=== PATIENT | female | born 1990 | race Caucasian/White ===

== ENCOUNTER 2019-12-22 09:18 | Observation (INO) | payer OTHER, SELFPAY ==
--- NOTE | ~2019-12-22 | MR_ITS ---
EXAMINATION: MR cervical spine wo con DATE: 12/22/2019 18:14 INDICATION: Right hemiparesis. TECHNIQUE: Magnetic resonance imaging (MRI) of the cervical spine was performed without intravenous c ontrast. Sequences included sagittal T2-weighted FSE, sagittal T2-weighted FS FSE, sagittal T1-weight ed FSE, axial MERGE, and axial T2-weighted FSE. COMPARISON: None FINDINGS: There is mild kyphosis of cervical spine. Vertebral body heights and intervertebral disc he ights are normal. The spinal cord signal intensity is normal. The following disc levels are specifica lly discussed: C2-C3: The disc does not extend beyond the endplate margin. There is no uncovertebral joint osteoarth ritis. There is mild bilateral facet joint osteoarthritis. There is no neural foraminal stenosis. The re is no central canal stenosis. C3-C4: The disc does not extend beyond the endplate margin. There is no uncovertebral joint osteoarth ritis. There is no facet joint osteoarthritis. There is no neural foraminal stenosis. There is no hal tral canal stenosis. C4-C5: There is a central protrusion. There is no uncovertebral joint osteoarthritis. There is mild b ilateral facet joint osteoarthritis. There is no neural foraminal stenosis. There is mild central can al stenosis. C5-C6: There is a central extrusion. There is no uncovertebral joint osteoarthritis. There is no face t joint osteoarthritis. There is no neural foraminal stenosis. There is mild central canal stenosis. C6-C7: There is a central protrusion. There is mild left uncovertebral joint osteoarthritis. There is no facet joint osteoarthritis. There is no neural foraminal stenosis. There is mild central canal st enosis. C7-T1: The disc does not extend beyond the endplate margin. There is no uncovertebral joint osteoarth ritis. There is mild bilateral facet joint osteoarthritis. There is no neural foraminal stenosis. The re is no central canal stenosis. IMPRESSION: 1. Mild cervical spondylosis. Reviewed, dictated and finalized at location A. ETRICIAN
--- NOTE | ~2019-12-22 | CT_ITS ---
EXAMINATION: CTA brain carotid DATE: 12/22/2019 10:49 INDICATION: Right hemiparesis. TECHNIQUE: Computed tomographic angiography (CTA) of the head was performed without and with 100 mL O mnipaque-350 intravenous contrast. CTA of the neck was performed with intravenous contrast. Automated exposure control and iterative reconstruction technique were employed. The dose-length product was 1 548.16 mGy-cm. Maximum intensity projection and volume rendered 3D-reconstructions were created by migue lerner technologist on a separate workstation. COMPARISON: None. FINDINGS: HEAD CTA: There is no intracranial hemorrhage, acute infarction, or abnormal intracranial mass lesion . The ventricles are normal in size. There is mild mucosal thickening in the paranasal sinuses. The m astoid air cells are normal. The orbits are normal. The vertebral arteries are codominant. There is n o significant stenosis of basilar artery or the posterior cerebral arteries. There is no significant stenosis of the intracranial internal carotid arteries or anterior or middle cerebral arteries. Anter ior communicating artery is normal. The posterior communicating arteries are normal. There is no aneu rysm. NECK CTA: There is mild emphysema. There are no pathologically enlarged lymph nodes. There is no sign ificant stenosis of the vertebral arteries. There is no visible plaque in the proximal internal carot id arteries. There is 0% stenosis of the proximal right internal carotid artery relative to normal di stal artery lumen diameter (NASCET criteria). There is 0% stenosis of the proximal left internal paul tid artery relative to normal distal artery lumen diameter. There is mild cervical spondylosis. IMPRESSION: 1. Normal brain. No aneurysm or significant intracranial arterial stenosis. 2. Normal neck arteries. 3. I discussed these results with Marvin Armendariz on 12/22/19 at 10:55 AM. Reviewed, dictated and finalized at location A. RED VEHICLE OFFICER
--- NOTE | ~2019-12-22 | MR_ITS ---
EXAMINATION: MR brain/brain stem wo con DATE: 12/22/2019 18:14 INDICATION: Right hemiparesis. TECHNIQUE: Magnetic resonance imaging (MRI) of the brain and brainstem was performed without intraven ous contrast. Sequences included sagittal and axial T1-weighted FSE, axial diffusion-weighted FS EPI, axial T2*-weighted GRE, axial T2-weighted FLAIR Propeller, and axial T2-weighted Propeller. Apparent diffusion coefficient (ADC) maps were created. COMPARISON: Head CTA 12/22/2019 FINDINGS: There is no intracranial hemorrhage, acute infarction, or abnormal intracranial mass lesion . The ventricles are normal in size. There is mild mucosal thickening in the paranasal sinuses. The o rbits are normal. The mastoid air cells are normal. IMPRESSION: 1. Normal brain. Reviewed, dictated and finalized at location A. ESS TRACK VEHICLE SUPERVISOR IMPRESSION: 1. Normal brain.
[2019-12-22 09:24] VITALS: BP 128/78; PULSE 79; RESP 24; TEMP 36.5; O2SAT 100
[2019-12-22 09:55] LABS: Glucose Point of Care 78 (65-105)
--- NOTE | 2019-12-22 10:15 | ECG_ITS ---
Measurements Intervals [place] Rate: 75 P: 0 AL: 121 QRS: 51 QRSD: 85 T: 48 QT: 364 QTc: 407 Interpretive Statements SINUS RHYTHM NORMAL ECG Electronically Signed On 12-22-2019 10:58:16 AIRCRAFT MAINTENANCE MANAGER by Lobo Alvarez D.O.
--- NOTE | 2019-12-22 10:21 | ED.NEUROSD ---
HPI - Neuro Symptoms/Deficit General Chief Complaint: Neuro Symptoms/Deficit Stated Complaint: R arm and leg numbness Time Seen by Provider: 12/22/19 10:17 Source: patient and RN notes reviewed Mode of arrival: ambulatory Limitations: no limitations History of Present Illness HPI Narrative: A 29 y/o female presents to the ED with tingling and weakness to the rt side of her body beginning between 7:20 and 8:30 AM this morning. She states that she woke up at 7 AM this morning with a sore throat and some SOB. After roughly 30 minutes she developed tingling and weakness to the rt side of her body, arm then thigh then knee. After dropping at daycare she reports that she felt like she needed help walking because she felt like she would fall if she ddin't have any help, and her r side was weak. this was about 8:30 am. She denies anything alleviating her symptoms and notes that walking aggravates them. She also denies dizziness, lightheadedness, LERMA, N/V/D, ABD pain, and any other medical complaints at this time. She is tearful. Denies any previous episodes. Onset (ago): hour(s) (2) Time: 08:30 Location: right arm and right leg Quality: tingling and other (weakness) Relieving factors: none Exacerbating factors: other (walking) Context: sudden onset Associated symptoms: shortness of breath and other (sore throat) Related Data Home Medications Medication Instructions Recorded Confirmed No Home Medications 12/22/19 12/22/19 Allergies Allergy/AdvReac Type Severity Reaction Status Date / Time clarithromycin Allergy Mild Unknown Verified 12/22/19 09:43 Penicillins Allergy Mild Unknown Verified 12/22/19 09:43 sulfamethoxazole Allergy Mild Unknown Verified 12/22/19 09:43 trimethoprim Allergy Mild Unknown Verified 12/22/19 09:43 Review of Systems Review of Systems: All systems reviewed & are unremarkable except as noted in HPI and below Constitutional: Constitutional: Denies chills, Denies fatigue, Denies fever(s), Denies headache(s) and Denies night sweats Eyes: Eyes: Denies change in vision, Denies loss of vision and Denies other visual disturbances ENT: Denies headache(s), Denies hoarseness, Denies epistaxis, Denies nasal congestion and Reports sore throat Cardiovascular: Cardiovascular: Denies chest pain, Denies leg edema, Denies lightheadedness, Denies palpitations and Denies dyspnea Respiratory: Respiratory: Denies cough, Reports dyspnea and Denies wheezing Gastrointestinal: Gastrointestinal: Denies abdominal pain, Denies diarrhea, Denies nausea and Denies vomiting Genitourinary: Genitourinary: Denies hematuria, Denies urinary frequency and Denies dysuria Musculoskeletal: Musculoskeletal: Denies abnormal gait, Denies deformity, Denies joint swelling, Denies muscle weakness and Denies numbness Integumentary/Breasts: Skin/Breast: Denies rash, Denies unusual bruising and Denies wounds Neurologic: Denies abnormal gait, Denies dizziness, Denies headache(s), Denies loss of vision and Reports tingling (and weakness to rt side of body) Psychiatric: Psychiatric: Reports no additional psychiatric complaints Endocrine: Endocrine: Denies fatigue and Denies palpitations Hematologic/Lymphatic: Hematologic/Lymphatic: Denies easy bleeding and Denies easy bruising Allergic/Immunologic: Allergic/Immunologic: Denies wheezing PMFSH Past Medical History Medical History (Updated 12/22/19 @ 12:44 by Timothy Gomes MD) IUD (intrauterine device) in place Remove/insert IUD Surgical History Surgical History (Updated 12/22/19 @ 10:42 by Linus Jerry) History of tonsillectomy Social History Social History (Updated 12/22/19 @ 10:42 by Linus Jerry) Smoking packs per day: 0.5 Smoking cigarettes per day: 10.0 Smoking status: Current every day smoker Tobacco type: cigarettes Second hand tobacco smoke exposure: Yes Substance use: current Substance use type: marijuana Gender identity (if verbalized by the patient): Female C
[2019-12-22 10:44] LABS: Basophils Percent Auto 0.6 % (0.2-1.2); Eosinophils Absolute Auto 0.2 K/mm3 (0-0.3); Eosinophils Percent Auto 2.3 % (0-4.4); Hematocrit 39.2 % (37.0-47.0); Hemoglobin 12.6 g/dL (12.0-15.0); Immature Granulocyte Absolute 0.01 K/mm3 (0.00-0.031); Immature Granulocyte Percent A 0.2 % (0-0.5); Immature Platelet Fraction Pct 8.2 % (0.9-11.2); Lymphocytes Absolute Auto 1.13 K/mm3 (0.9-3.2); Lymphocytes Percent Auto 17.4 % (18.3-44.2); Mean Corpuscular HGB Conc 32.1 g/dl (32-36); Mean Corpuscular Hemoglobin 30.4 pg (26-34); Mean Corpuscular Volume 94.7 fl (80-100); Monocytes Absolute Auto 0.7 K/mm3 (0.1-0.6); Monocytes Percent Auto 11.2 % (2.6-8.5); Neutrophils Absolute Auto 4.5 K/mm3 (1.3-6.7); Neutrophils Percent Auto 68.3 % (45.5-73.1); Platelet Count Result 216 k/mm3 (150-375); Red Blood Count 4.14 M/mm3 (4.2-5.4); Red Cell Distribution Width 13.7 % (11.5-14.5); White Blood Count 6.5 K/mm3 (4.5-10.0)
[2019-12-22 10:50] LABS: INR 0.9; Prothrombin Time 12.3 Seconds (11.1-14.7)
[2019-12-22 10:51] LABS: Partial Thromboplastin Time 28.3 SECONDS (22.3-36.8)
[2019-12-22 10:52] LABS: Ethanol < 10 mg/dL (<10)
[2019-12-22 10:54] LABS: Alanine Aminotransferase 21 U/L (4-35); Alkaline Phosphatase 54 U/L (38-126); Aspartate Amino Transferase 25 U/L (14-36); Bilirubin,Total 0.2 mg/dL (0.2-1.3); Blood Urea Nitrogen 8 mg/dL (7-17); Calcium 8.9 mg/dL (8.4-10.2); Carbon Dioxide 26 mmol/L (22-30); Chloride 104 mmol/L (98-107); Estimated CRCL calculation 76 ml/min; Estimated Glomerular Filt Rate > 60; Glucose 84 mg/dL (65-105); Potassium 4.1 mmol/L (3.4-5.0); Sodium 139 mmol/L (137-145)
[2019-12-22 11:05] LABS: Troponin I < 0.012 ng/mL (0.000-0.034)
[2019-12-22 11:27] LABS: Add Urine Microscopic? YES; Appearance Urine Clear (Clear); Bacteria Urine Trace /hpf; Bilirubin Urine Negative (Negative); Blood Urine Negative (Negative); Color Urine Yellow (Yellow); Glucose Urine UA Negative (Negative); Ketones Urine Negative (Negative); Leukocyte Esterase Ur Negative LEU/UL (Negative); Mucus Urine Rare /lpf; Nitrate Urine Negative (Negative); Protein Urine 1+ mg/dL (Negative); Squamous Epithelial Cell Urine Many /hpf (Few); Urobilinogen Urine Negative mg/dL (<2.0); WBC Urine 0-3 /hpf
[2019-12-22 11:33] LABS: Specific Grav Ur 1.058 (1.001-1.035)
[2019-12-22 11:55] LABS: Amphetamine Screen Urine Negative (Negative); Barbiturate Screen Urine Negative (Negative); Benzodiazepines Screen Urine Positive (Negative); Cannabinoid Screen Urine Positive (Negative); Cocaine Screen Urine Positive (Negative); Methadone Screen Urine Negative (Negative); Opiate Screen Urine Negative (Negative); Phencyclidine Screen Urine Negative (Negative)
[2019-12-22] MEDS: PROCHLORPERAZINE EDISYLATE 10 MG/2 ML VIAL IV PUSH (11:56)
--- NOTE | 2019-12-22 12:49 | PC.NURSE ---
Called [facility] to give report, Lina stated RN will call back in few minutes to receive report.
[2019-12-22 13:15] VITALS: BP 131/71; PULSE 73; RESP 16; TEMP 36.6; O2SAT 100; BMI 22.0
--- NOTE | 2019-12-22 13:15 | ADMGEN ---
This patient, Aisha Thomason, was admitted to 2 Medical Room 240-. Patient/family oriented to hospital policies and general routines including ID bracelet, bed and alarms, visiting hours, pain management, procedures, bathroom and other care routines, personal items, smoking policy, room service/diet, and visiting hours. Valuables list has been completed. Information on how to activate the Rapid Response Team has been discussed. Patient/Family are encouraged to report perceived risks to care and to ask questions if they do not understand what they are told or what they should do.
[2019-12-22] MEDS: LACTATED RINGERS 1,000 ML 60 ML IV CONT (13:34)
[2019-12-22 14:00] VITALS: BP 122/71; PULSE 67; RESP 14; TEMP 36.9; O2SAT 98
[2019-12-22 16:00] VITALS: PULSE 83
--- NOTE | 2019-12-22 19:00 | PM.IMHP ---
H&P: HPI History of Present Illness Chief complaint: Right-sided numbness. Narrative: Aisha Thomason is a 29 year old female smoker with cyclic vomiting syndrome who presented to the emergency department earlier this morning via private vehicle for right-sided numbness. She woke up at about 07:00 in her usual state of health. As she was getting ready, she started to feel a bit short of breath and tells me that her voice was ?raspy? with a mild sore throat, nonproductive cough, and runny nose. She drove her child to school, and while sitting in the car in the parking lot she developed sudden chills followed by hot flashes and dizziness. She then noticed that the right upper arm was numb, followed quickly by numbness in the right thigh. The extremities also felt heavy and she was having difficulty walking because of that. She got her 1st tattoo yesterday on her right rib cage, and she is worried that perhaps getting the tattoo may have cause the symptoms ?as my body always rejects foreign objects, such as earrings.? Her symptoms resolved within a few hours and have not returned. With further questioning, she does admit increased stress recently and although she denies history of anxiety she tells me that she is ?high strung? and seems fidgety. We also discussed her urine drug screen results, which were positive for benzodiazepines, cocaine, and cannabinoids. She admits that she took a Xanax given to her by a friend yesterday prior to receiving her tattoo, but states that she does not typically take benzodiazepines. She does smoke marijuana daily. With regards to the cocaine, she denies having knowledge of using said drug but did admit to using Adderall on Sunday, which may have been mixed with such ?and I was up all night.? She denies headache, vertigo, auditory and visual changes, current paresthesias, and focal weakness. She has not had chest pain, palpitations, or any further shortness of breath. She has not had any recent falls or trauma. No neck strain or injury. Review of Systems Review of Systems: All systems reviewed & are unremarkable except as noted in HPI and below PMFSH Past Medical History Medical History (Updated 12/22/19 @ 23:56 by Maricarmen Pina PA-C) Cyclic vomiting syndrome Tobacco dependence Surgical History Surgical History (Updated 12/22/19 @ 23:50 by Maricarmen Pina PA-C) History of placement of ear tubes History of tonsillectomy Status post laparotomy With removal of IUD from the omentum. Family History Family History (Updated 12/22/19 @ 23:50 by Maricarmen Pina PA-C) Mother Healthy adult Father Healthy adult Social History Social History (Updated 12/22/19 @ 23:51 by Maricarmen Pina PA-C) Social History: The patient lives in [place] with her dad. She designates her grandmother, Abril, as her surrogate decision maker and she wishes to be a full code. 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 She drinks alcohol rarely and in moderation. She smokes marijuana daily. Occasional recreational prescription drug use including Adderall. Smoking packs per day: 0.5 Smoking cigarettes per day: 10.0 Years smoked: 14 Smoking pack-years: 7.00 Smoking status: Current every day smoker Tobacco type: cigarettes Second hand tobacco smoke exposure: Yes Alcohol intake: current Drinks per week: 1 Substance use: current Substance use type: marijuana Other substance usage details: Marijuana daily Gender identity (if verbalized by the patient): Female Spiritual care concerns: No Agree to blood products: Yes Meds Home Medications and Allergies Home Medications Medication Instructions Recorded Confirmed Type No Home Medications 12/22/19 12/22/19 History Allergies Allergy/AdvReac Type Severity Reaction Status Date / Time clarithromycin Allergy Mild Unknown Verified 12/22/19 09:43 Penicillins Allergy Mild Unknow
[2019-12-22 20:00] VITALS: PULSE 71
[2019-12-22 21:41] VITALS: BP 125/75; PULSE 70; RESP 18; TEMP 36.2; O2SAT 100
[2019-12-23] VITALS (8 sets, daily range): BP systolic 127–136; BP diastolic 75–80; PULSE 54–108; RESP 14–20; TEMP 36.7–38; O2SAT 99–100
[2019-12-23] MEDS: ACETAMINOPHEN 325 MG TABLET 650 MG PO (05:52)
--- NOTE | 2019-12-23 17:03 | CONS_ITS ---
DATE OF CONSULTATION: HISTORY: This 29 years old right-handed female has been admitted to [facility] through the emergency room for the complaint of right-sided numbness. As per the information available, she woke up at about 7:00 a.m. in her usual state of health. She was getting ready, but she felt somewhat short of breath and her voice was raspy with so-called sore throat, nonproductive cough, and runny nose. She drove her child to school and while sitting in the car in the parking lot, she developed sudden chills followed by hot flashes and dizziness. She noted her right upper extremity was numb followed quickly by the numbness in her right thigh. Extremities also felt heavy and she was having difficulty walking because of that. She got her 1st tattoo yesterday on her right rib cage and she was worried that perhaps getting a tattoo may have caused the symptom, as her body always reject the foreign object such as earring. Her symptomatology resolved within few hours and did not return. She did admit increasing stress recently, although she denied history of anxiety, but she was strong and seemed fidgety. Her drug screen was positive for benzodiazepine, cocaine, and cannabinoids. She admitted that she took her Xanax given to her by a friend yesterday prior to receiving her tattoo, but she does not typically take benzodiazepine. She does smoke marijuana daily, which recurs with the cocaine. She denies having nausea, refusing said drugs, but did admit to using a roll on Sunday, which may have been mixed with such and I was up all night. She gave no history of headache, vertigo, or auditory and visual hallucinations. PAST HISTORY: 1. Consistent with a diagnosis of cyclical vomiting syndrome since early morning. 2. Tonsillectomy, laparotomy with removal of the IUD from the omentum. SOCIAL HISTORY: She smokes 7 packs a year. Current every day smoker only half a pack per day. MEDICATIONS: She is not taking any medication. ALLERGIES: SHE IS REPORTEDLY ALLERGIC TO CLARITHROMYCIN, PENICILLIN, SULFAMETHOXAZOLE, AND TRIMETHOPRIM. PHYSICAL EXAMINATION: GENERAL: Today, she was awake, alert, and cooperative, in no obvious acute distress. HEAD: Normocephalic with no cranial bruit. Ear, nose, throat exam was normal. NECK: Supple with no cervical bruit. No thyromegaly. No lymphadenopathy. HEART: Regular with no murmur. LUNGS: Clear to auscultation. ABDOMEN: Soft with no organomegaly. Normal bowel sounds. NEUROLOGICAL: She was awake, alert, and oriented x3. Speech not dysphasic, not dysarthric, not dysphonic. Pupils round and regular. Flores of vision full. Extraocular movements full. Face symmetrical. Tongue midline. Motor examination revealed her to have normal strength and tone. Reflexes symmetrical. Plantars downgoing. LABORATORY STUDIES: Evaluation up until now included normal CBC, normal basic metabolic panel, and troponin less than 0.012. Hepatic enzymes normal Head and neck CTA revealed normal brain, no aneurysm, and no significant intracranial arterial stenosis. MRI of the cervical spine is mild cervical spondylosis. MRI of the brain is completely normal. IMPRESSION: The patient and the patient's mother have been concerned about the possibility of seizure because of a history of childhood cyclical vomiting disorder. At this stage, there is no evidence of any seizure phenomenon and she can always given the number for the followup if necessary. At this stage, no further medications are necessary and also no further investigation. She can return to the office for the followup if necessary. INDERJIT BARBOUR M.D. CIVIL PREPAREDNESS OFFICER 13:
--- NOTE | 2019-12-23 19:29 | PM.DS ---
DS: Diagnosis Admitting Diagnosis Admitting Diagnosis: Anesthesia of skin Discharge Diagnosis (1) Right sided numbness: Code(s): R20.0 - Anesthesia of skin Status: Acute Assessment and Plan: Date of Service 12/23/19: Aisha Thomason is a 29yo F smoker with cyclic vomiting syndrome who presented to the ED for evaluation of right-sided numbness. Her symptoms began the morning of admission shortly after she woke up and lasted for a few hours. She reported developing chills and dizziness, then her right arm was numb, then her right thigh was numb. Her right arm and right leg felt heavy which caused her to have difficulty walking. She notes herself to be a high strung person. She uses marijuana daily. Her drug screen was positive for marijuana, benzodiazepines, and cocaine. She denies cocaine use but notes she took a Xanax prior to getting her first tattoo on her right ribcage the day prior to arrival. Her symptoms resolved in the ED and did not recur during her hospital stay. Head/neck CTA, brain MRI, and C spine MRI were unremarkable. Routine labs and vitamin B12 level within normal limits. It is felt her symptoms may have been associated with anxiety and hyperventilation vs. polysubstance abuse. Neurology was consulted. She can follow up with Dr Alvarado if needed in the future. She was instructed to follow up with PCP and was given a resource list for therapist/counselors/psychiatrists in the area. Symptoms lasted for several hours before resolving. Given her age, TIA/CVA less likely. Anxiety and hyperventilation may be contributing factors. MRI of the brain and cervical spine unremarkable. Neurology consulted - can follow with Dr Alvarado in the future if symptoms worsen. (2) Polysubstance abuse: Code(s): F19.10 - Other psychoactive substance abuse, uncomplicated Status: Acute Assessment and Plan: She was educated about her drug screen. She was educated her about cocaine and medical complications that can come with that. She has smoked marijuana daily for many years, discussed how this can worsen her cyclic vomiting. DS: Summary Time Spent with Patient Time attestation: Total time spent providing and/or coordinating discharge services: 35 minutes Exam Narrative: Exam Narrative: General: Female resting supine in bed in no acute distress, fidgety. HEENT: Normocephalic, EOMI, oral mucosa moist. Cardiovascular: Rate and rhythm are regular. No notable murmur, rub, or gallop. Respiratory: Lungs clear to auscultation all moe. Non-labored breathing. Abdomen: Soft, non-tender, non-distended, bowel sounds present. Well- healing tattoo to right ribcage with no rash, bleeding, or other evidence of acute infection. Extremities: Peripheral pulses intact. No edema. Neuro: No focal neurological deficits. Speech is clear. DS: Data Imaging Radiologist's impression: ITS Impressions Head/Neck CTA 12/22/19 10:50 IMPRESSION: 1. Normal brain. No aneurysm or significant intracranial arterial stenosis. 2. Normal neck arteries. Brain MRI 12/23/19 07:23 IMPRESSION: 1. Normal brain. Cervical Spine MRI 12/23/19 07:25 IMPRESSION: 1. Mild cervical spondylosis. Discharge Plan Discharge Attending physician on discharge: Catherine Velasquez Consulting providers: Kvng Alvarado Discharging Clinician: Radha Garcia Anticipated Discharge Date/Time: 12/23/19 14:42 Patient Disposition: Home, Self-Care Activity: as tolerated Diet: as tolerated and regular Discharge Instructions: Follow up with your primary care provider in 1 week. You may benefit from establishing care with a psychologist or counselor. Return to ER for worsening or concerning symptoms. Patient Instructions: Antibiotic Form, How to Stop Smoking (DC), Anxiety (GEN) Stand Alone Forms: General Discharge Information Follow-up/Referrals: Chilango Gupta MD [Primary Care Pro
== END 2019-12-23 15:00 | disposition home or self-care (01) ==
LOC: ANHED 11:52 → ANH2MED 12:24
PROVIDERS: Emergency Medicine Emergency Medical Services; Physician Assistant; Admitting Provider Family Medicine; Emergency Provider Emergency Medicine; PCP Emergency Medicine; Visit Provider Family Medicine
DX: R20.0 Anesthesia of skin (principal); F19.10 Other psychoactive substance abuse, uncomplicated; R11.15 Cyclical vomiting syndrome unrelated to migraine; F17.210 Nicotine dependence, cigarettes, uncomplicated; L81.8 Other specified disorders of pigmentation
CPT/HCPCS: 36415; 70496; 70498; 70551; 72141; 80053; 80307; 81001; 81025; 82607; 82948; 84484; 85025; 85055; 85610; 85730; 93005; 96361; 96374; 96375; 99285; A9270; G0378; G0379; J0780; J1200; J7120; Q9967

== ENCOUNTER 2021-03-06 09:40 | Emergency (ER) | payer OTHER, SELFPAY ==
--- NOTE | ~2021-03-06 | XR_ITS ---
EXAMINATION: XR chest 2V EXAM DATE: 03/06/2021 10:20 INDICATION: Cough, wheezing today. TECHNIQUE: Frontal and lateral projections of the chest obtained and reviewed. Comparison is made to prior examination from 07/18/2011. FINDINGS: Resolution of previously seen free intraperitoneal gas. The lungs are clear. There are no pleural effusions. The cardiomediastinal silhouette is within normal limits. There is no pneumotho rax suspected. The bones and soft tissues are unremarkable. IMPRESSION: Unremarkable chest x-ray exam. Reviewed, dictated and finalized at location A.
--- NOTE | 2021-03-06 09:53 | ED.GENADULT ---
HPI - General Adult General Chief complaint: Shortness of Breath/Dyspnea Stated complaint: tooth ache Time Seen by Provider: 03/06/21 09:53 Source: patient Mode of arrival: ambulatory Limitations: no limitations History of Present Illness HPI narrative: 30-year-old female patient presents to the [facility] with complaints of dental pain to the left lower oral cavity for the past 4 days. Patient states she also started having a cough and shortness of breath yesterday. Patient states she did not sleep well last night due to the coughing and does feel short of breath. Denies any chest pain. Patient states she is an active smoker. Patient states she has been trying an [id number] mouthwash and ibuprofen for the tooth pain denies take anything for the cough. Patient states she has had some chills and body aches but denies any fevers that she is aware of. Related Data Allergies Allergy/AdvReac Type Severity Reaction Status Date / Time clarithromycin Allergy Mild Unknown Verified 12/22/19 09:43 Penicillins Allergy Mild Difficulty Verified 03/06/21 09:54 Breathing sulfamethoxazole Allergy Mild Unknown Verified 12/22/19 09:43 trimethoprim Allergy Mild Unknown Verified 12/22/19 09:43 Review of Systems Review of Systems: Narrative: CONSTITUTIONAL: Denies fever, positive body aches and chills, or sweats. EYES: Denies visual changes, redness, or discharge. ENT: Denies rhinorrhea, congestion, sore throat, or otalgia. Positive left lower dental pain x4 days CARDIOVASCULAR: Denies chest pain, palpitations, or edema. RESPIRATORY: Positive cough with dyspnea. GASTROINTESTINAL: Denies abdominal pain, nausea, vomiting, or diarrhea. GENITOURINARY: Denies dysuria or hematuria. SKIN: Denies rash or itching. MUSCULOSKELETAL: Denies back pain, joint pain, or myalgia. NEUROLOGIC: Denies headache, numbness, or weakness. PSYCHIATRIC: Denies anxiety or depression. [facility]LY [facility] Past Medical History Medical History Cyclic vomiting syndrome Tobacco dependence Surgical History Surgical History History of placement of ear tubes History of tonsillectomy Status post laparotomy With removal of IUD from the omentum. Family History Family History Mother Healthy adult Father Healthy adult Social History Social History Social History: The patient lives in [place] with her dad. She designates her grandmother, Abril, as her surrogate decision maker and she wishes to be a full code. 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 She drinks alcohol rarely and in moderation. She smokes marijuana daily. Occasional recreational prescription drug use including Adderall. Smoking packs per day: 0.5 Smoking cigarettes per day: 10.0 Years smoked: 14 Smoking pack-years: 7.00 Smoking status: Current every day smoker Tobacco type: cigarettes Second hand tobacco smoke exposure: Yes Alcohol intake: current Drinks per week: 1 Substance use: current Substance use type: marijuana Other substance usage details: Marijuana daily Gender identity (if verbalized by the patient): Female Spiritual care concerns: No Agree to blood products: Yes Comments At the time of my signature I agree with nursing past medical history, surgical, social, and family history. There is no relevant family history pertinent to the presenting complaint. Exam Narrative: Exam Narrative: GENERAL: ill-appearing, well-nourished, and in no acute distress. HEAD: Normocephalic, atraumatic. EYES: PERRLA and EOMI. ENT: Nares with erythema and edema noted bilaterally, no rhinorrhea or epistaxis. Mucous membranes moist. Patient does have a broken tooth noted to the left lower canine with surrounding erythema and tende
[2021-03-06 10:00] VITALS: BP 141/100; PULSE 90; RESP 16; TEMP 36.4; O2SAT 95
[2021-03-06] MEDS: IPRATROPIUM BR 0.02% INH SOLN 0.5 MG/2.5 ML VIAL INHALATION (10:17)
[2021-03-06] MEDS: ALBUTEROL SULFATE NEB 2.5 MG/3 ML INH INHALATION (10:17)
--- NOTE | 2021-03-06 10:23 | PC.NURSE ---
Lenard from [facility] notified of COVID pcr swab that needs picked up.
--- NOTE | 2021-03-06 10:47 | PC.NURSE ---
nebulizer continueing to infuse. Pt tolerating without adverse effects.
[2021-03-06 11:05] VITALS: PULSE 71; RESP 22; O2SAT 97
[2021-03-07 19:43] LABS: SARS-CoV-2 RNA PCR Negative
== END 2021-03-06 11:18 | disposition home or self-care (01) ==
PROVIDERS: Emergency Provider Nurse Practitioner Family
DX: K04.7 Periapical abscess without sinus (principal); H66.91 Otitis media, unspecified, right ear; J40 Bronchitis, not specified as acute or chronic; Z20.822 Contact with and (suspected) exposure to COVID-19; R11.15 Cyclical vomiting syndrome unrelated to migraine; F17.210 Nicotine dependence, cigarettes, uncomplicated
CPT/HCPCS: 71046; 87804; 94640; 99213; C9803; G0463; U0003; U0005

== ENCOUNTER 2021-12-26 19:32 | Emergency (ER) | payer OTHER, SELFPAY ==
--- NOTE | ~2021-12-26 | XR_ITS ---
EXAMINATION: XR pelvis 1-2V EXAM DATE: 12/26/2021 23:43 INDICATION: Right Hip Pain Radiating Down Leg. TECHNIQUE: Pelvis frontal projection(s) obtained and reviewed. There is no prior study for compariso n. FINDINGS: Patient reportedly unable to extend right leg, right hip underpenetrated. Hip joints appea r symmetric with mild bilateral primary osteoarthritis. There is mild lumbar levoscoliosis. Pelvic ri ng appears intact, no acute fracture identified. IMPRESSION: Limited right hip visualization. Mild bilateral hip osteoarthritis. Reviewed, dictated and finalized at location G. GE LPN IMPRESSION: Limited right hip visualization. Mild bilateral hip osteoarthritis .
[2021-12-26 19:34] VITALS: BP 143/91; PULSE 94; RESP 20; TEMP 36.7; O2SAT 99
[2021-12-26 20:37] VITALS: BP 140/80; PULSE 90; RESP 18; O2SAT 100
[2021-12-26] MEDS: KETOROLAC 30 MG/ML VIAL (*BKC) IM (21:27)
--- NOTE | 2021-12-26 21:35 | ED.LOWEXIN ---
HPI - Extremity Injury (Lower) General Chief Complaint: Extremity Injury, Lower Stated Complaint: right leg pain Time Seen by Provider: 12/26/21 21:07 Source: patient History of Present Illness HPI Narrative: Patient presents with unable to move her right leg. Patient reports she bent over to pick something up and felt a pop in her back and ever since then she cannot move her right leg. Reports she has been sitting with her legs up for the past 4 hours due to pain. She denies falling down reports there is a shooting numbness sensation from her right back/hip down to her foot. Reports her symptoms feel like a charley horse that will not go away. Denies any fevers or chills she denies any bowel or bladder incontinence Related Data Allergies Allergy/AdvReac Type Severity Reaction Status Date / Time clarithromycin Allergy Mild Unknown Verified 12/22/19 09:43 Penicillins Allergy Mild Difficulty Verified 03/06/21 09:54 Breathing sulfamethoxazole Allergy Mild Unknown Verified 12/22/19 09:43 trimethoprim Allergy Mild Unknown Verified 12/22/19 09:43 Review of Systems Review of Systems: CONSTITUTIONAL: Denies fever, chills, or sweats. EYES: Denies visual changes, redness, or discharge. ENT: Denies rhinorrhea, congestion, sore throat, or otalgia. CARDIOVASCULAR: Denies chest pain, palpitations, or edema. RESPIRATORY: Denies cough or dyspnea. GASTROINTESTINAL: Denies abdominal pain, nausea, vomiting, or diarrhea. GENITOURINARY: Denies dysuria or hematuria. SKIN: Denies rash or itching. MUSCULOSKELETAL: Denies joint pain, or myalgia. NEUROLOGIC: Denies headache, numbness, dizziness, or weakness. PSYCHIATRIC: Denies anxiety or depression. All systems reviewed & are unremarkable except as noted in HPI and below PMFSH Past Medical History Medical History Cyclic vomiting syndrome Tobacco dependence Surgical History Surgical History History of placement of ear tubes History of tonsillectomy Status post laparotomy With removal of IUD from the omentum. Family History Family History Mother Healthy adult Father Healthy adult Social History Social History Social History: The patient lives in [place] with her dad. She designates her grandmother, Abril, as her surrogate decision maker and she wishes to be a full code. 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 She drinks alcohol rarely and in moderation. She smokes marijuana daily. Occasional recreational prescription drug use including Adderall. Smoking packs per day: 0.5 Smoking cigarettes per day: 10.0 Years smoked: 14 Smoking pack-years: 7.00 Smoking status: Current every day smoker Tobacco type: cigarettes Second hand tobacco smoke exposure: Yes Alcohol intake: current Drinks per week: 1 Substance use: current Substance use type: marijuana Other substance usage details: Marijuana daily Gender identity (if verbalized by the patient): Female Spiritual care concerns: No Agree to blood products: Yes Exam Narrative: GENERAL: Well-appearing, well-nourished HEAD: Normocephalic, atraumatic. EYES: PERRLA and EOMI. ENT: Nares clear, no rhinorrhea or epistaxis. Mucous membranes moist. NECK: Supple. No masses. No JVD EXTREMITIES: Full range of motion of the left lower extremity right hip is in a flexed position patient cries when attempting to manipulate. There is no obvious bony deformities there is no focal bony tenderness palpation of the right lower extremity sensation intact 2+ DP pulses bilaterally SKIN: Warm, dry, no rash. NEURO: No focal deficits. Alert and oriented x3. PSYCH: Normal mood and affect. Course Reevaluation(s) Reevaluation #1: Patient with increased agitation repor
[2021-12-26] MEDS: CYCLOBENZAPRINE HCL 10 MG TABLET PO (21:47)
[2021-12-26] MEDS: LORazepam (*CRX) 1 MG TABLET PO (22:20)
[2021-12-26] MEDS: LORazepam (*CRX) 1 MG TABLET 2 MG PO (23:20)
[2021-12-27] MEDS: TRIAMCINOLONE ACET INJ SUSP 50 MG/5 ML VIAL 40 MG IM (00:25)
[2021-12-27 00:35] VITALS: BP 145/98; PULSE 64; RESP 18; O2SAT 97
== END 2021-12-27 00:35 | disposition home or self-care (01) ==
PROVIDERS: Emergency Provider Emergency Medicine
DX: M54.31 Sciatica, right side (principal); F17.210 Nicotine dependence, cigarettes, uncomplicated
CPT/HCPCS: 72170; 96372; 99284; A9270; J1885; J3301

== ENCOUNTER 2023-12-05 17:54 | Emergency (ER) | payer OTHER, SELFPAY ==
[2023-12-05 18:11] VITALS: BP 130/86; PULSE 82; RESP 16; TEMP 36.9; O2SAT 100
--- NOTE | 2023-12-05 18:11 | ED.ABDPAIN ---
HPI - Abdominal Pain General Chief Complaint: Abdominal Pain Stated Complaint: Right Side Body Pain Time Seen by Provider: 12/05/23 18:35 Source: patient and RN notes reviewed Mode of arrival: ambulatory Limitations: no limitations History of Present Illness HPI narrative: 33-year-old female presents concern for sharp stabbing right upper quadrant abdominal pain that is intermittent in nature and started on Sunday. Reports the pain getting worse which is what brought her in today. She denies vomiting or diarrhea. Had a bowel movement this morning. MD elicited complaint: abdominal pain Related Data Allergies Allergy/AdvReac Type Severity Reaction Status Date / Time clarithromycin Allergy Mild Unknown Verified 12/05/23 18:24 Penicillins Allergy Mild Difficulty Verified 12/05/23 18:24 Breathing sulfamethoxazole Allergy Mild Unknown Verified 12/05/23 18:24 trimethoprim Allergy Mild Unknown Verified 12/05/23 18:24 Review of Systems Review of Systems: CONSTITUTIONAL: Denies malaise, chills, sweats, or fever. ENT: Denies rhinorrhea, congestion, sinus pain, otalgia or sore throat. CARDIOVASCULAR: Denies chest pain, palpitations, or edema. RESPIRATORY: Denies cough or dyspnea. GASTROINTESTINAL: Reports right upper quadrant abdominal pain. Denies nausea, vomiting, diarrhea, bloody, or mucous stools. GENITOURINARY: Denies dysuria or hematuria. MUSCULOSKELETAL: Denies myalgia. NEUROLOGIC: Denies headache. All systems reviewed & are unremarkable except as noted in HPI and below PMFSH Past Medical History Medical History Cyclic vomiting syndrome Tobacco dependence Surgical History Surgical History History of placement of ear tubes History of tonsillectomy Status post laparotomy With removal of IUD from the omentum. Family History Family History Mother Healthy adult Father Healthy adult Social History Social History Social History: The patient lives in [place] with her dad. She designates her grandmother, Abril, as her surrogate decision maker and she wishes to be a full code. 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 She drinks alcohol rarely and in moderation. She smokes marijuana daily. Occasional recreational prescription drug use including Adderall. Smoking packs per day: 0.5 Smoking cigarettes per day: 10.0 Years smoked: 14 Smoking pack-years: 7.00 Smoking status: Current every day smoker Tobacco type: cigarettes Second hand tobacco smoke exposure: Yes Alcohol intake: current Drinks per week: 1 Substance use: current Substance use type: marijuana Other substance usage details: Marijuana daily Gender identity (if verbalized by the patient): Female Spiritual care concerns: No Agree to blood products: Yes Comments At time of signature, agree with nursing past medical, surgical, social and family history. There is no relevant family history pertinent to the presenting complaint Exam Narrative: GENERAL: Well-appearing, well-nourished, and in no acute distress. HEAD: Normocephalic, atraumatic. EYES: PERRLA, conjunctivae clear, and EOMI. ENT: Nares clear, turbinates pink, no rhinorrhea or epistaxis. Mucous membranes moist. Oropharynx without edema, erythema, or lesions. Tonsils not enlarged and without exudate. NECK: Supple. No lymphadenopathy CHEST: Speaks in full sentences. No respiratory distress. HEART: Regular rate and rhythm. ABDOMEN: Soft, flat, nondistended right upper quadrant tenderness with guarding. No rebound tenderness, or rigidity. No pulsatile masses. Bowel sounds present in all four quadrants. No organomegaly. No periumbilical tenderness. No Supra public tenderness or distension. SKIN: Warm, dry, no
== END 2023-12-05 18:47 | disposition short-term general hospital (02) ==
PROVIDERS: Emergency Provider Nurse Practitioner; PCP Emergency Medicine
DX: R10.11 Right upper quadrant pain (principal); F17.210 Nicotine dependence, cigarettes, uncomplicated
CPT/HCPCS: 81003; 81025; 99212; G0463

== ENCOUNTER 2023-12-05 19:00 | Emergency (ER) | payer OTHER, SELFPAY ==
--- NOTE | ~2023-12-05 | XR_ITS ---
AP and oblique views of the right ribs, and PA and lateral chest radiographs Clinical History: Pain Findings: No rib fracture is seen. Osseous alignment is anatomic. Lungs are clear, without focal cons olidation or pleural effusion. Cardiomediastinal contour is within normal limits. Soft tissues are un remarkable. Impression: No rib fracture is seen. Clear lungs. Reviewed, dictated and finalized at location . E INFORMATICS EDUCATOR Impression: No rib fracture is seen. Clear lungs.
--- NOTE | ~2023-12-05 | CT_ITS ---
CT of the Abdomen and Pelvis: Indication: Abdominal pain Technique: 2.5 mm axial scans were obtained through the abdomen and pelvis following intravenous adm inistration of 100 cc of Omnipaque 350. Dose reduction technique was used on this scan by utilizing a utomated exposure control and iterative reconstruction technique. The dose-length product (DLP) was 3 02.44 mGy-cm. Findings: Scans through the lung bases are unremarkable. The liver, spleen, pancreas, adrenals and kidneys are within normal limits. Questionable minimal gall bladder wall thickening. No evidence of aortic aneurysm. No lymphadenopathy. No bowel obstruction or bowel wall thickening. There is no evidence to suggest acute appendicitis. Images through the pelvis were performed. Urinary bladder unremarkable. No pelvic mass seen. No ascit es. Impression: Questionable minimal gallbladder wall thickening, nonspecific. Consider additional gallbladder evalua tion/workup as indicated. Reviewed, dictated and finalized at [facility]. F COUNSELOR Impression: Questionable minimal gallbladder wall thickening, nonspecific. Consider additio nal gallbladder evaluation/workup as indicated.
[2023-12-05 19:34] VITALS: BP 127/85; PULSE 78; RESP 18; TEMP 36.6; O2SAT 98
[2023-12-05 21:01] LABS: Basophils Absolute Auto 0.1 K/mm3 (0.0-0.1); Basophils Percent Auto 0.7 % (0.2-1.2); Eosinophils Absolute Auto 0.4 K/mm3 (0-0.3); Hematocrit 40.1 % (37.0-47.0); Hemoglobin 12.8 g/dL (12.0-15.0); Immature Granulocyte Absolute 0.03 K/mm3 (0.00-0.031); Immature Granulocyte Percent A 0.3 % (0-0.5); Lymphocytes Absolute Auto 2.74 K/mm3 (0.9-3.2); Lymphocytes Percent Auto 23.8 % (18.3-44.2); Mean Corpuscular HGB Conc 31.9 g/dl (32-36); Mean Corpuscular Hemoglobin 31.3 pg (26-34); Mean Platelet Volume 11.7 fl (7.4-10.4); Monocytes Absolute Auto 0.7 K/mm3 (0.1-0.6); Monocytes Percent Auto 6.2 % (2.6-8.5); Neutrophils Absolute Auto 7.6 K/mm3 (1.3-6.7); Platelet Count Result 265 k/mm3 (150-375); Red Blood Count 4.09 M/mm3 (4.2-5.4); Red Cell Distribution Width 13.6 % (11.5-14.5); White Blood Count 11.5 K/mm3 (4.5-10.0)
[2023-12-05 21:04] LABS: Appearance Urine Clear (Clear); Bacteria Urine None Seen /hpf; Bilirubin Urine Negative (Negative); Blood Urine Negative (Negative); Color Urine Yellow (Yellow); Glucose Urine UA Negative (Negative); Ketones Urine Trace mg/dL (Negative); Leukocyte Esterase Ur Negative LEU/UL (Negative); Nitrate Urine Negative (Negative); Non Pathogenic Casts 0-2; Protein Urine Trace mg/dL (Negative); RBC Urine 0-2 /hpf (0-2); Specific Grav Ur 1.025 (1.001-1.035); Squamous Epithelial Cell Urine Occasional /hpf (Few); WBC Urine 0-5 /hpf
[2023-12-05 21:12] LABS: Alanine Aminotransferase 15 U/L (6-35); Albumin Level 4.1 g/dL (3.5-5.1); Alkaline Phosphatase 58 U/L (38-126); Anion Gap 7 mmol/L (8-16); Aspartate Amino Transferase 25 U/L (14-36); Bilirubin,Total 0.8 mg/dL (0.2-1.3); Blood Urea Nitrogen 8 mg/dL (7-17); Calcium 8.8 mg/dL (8.4-10.2); Carbon Dioxide 29 mmol/L (22-30); Chloride 103 mmol/L (98-107); Estimated CRCL calculation 92 ml/min; Estimated Glomerular Filt Rate > 60; Glucose 115 mg/dL (65-110); Lipase 34 U/L (23-300); Potassium 3.5 mmol/L (3.4-5.0); Sodium 139 mmol/L (137-145)
[2023-12-05 21:13] LABS: Add Urine Microscopic? YES
[2023-12-05 21:36] VITALS: BP 123/85; PULSE 86; RESP 14; O2SAT 98
[2023-12-05 22:38] VITALS: BP 140/98; PULSE 64; RESP 16; TEMP 36.6; O2SAT 99
[2023-12-05 23:23] VITALS: BP 125/92; PULSE 68; RESP 15; O2SAT 98
--- NOTE | 2023-12-05 23:36 | ED.ABDPAIN ---
HPI - Abdominal Pain General Chief Complaint: Abdominal Pain Stated Complaint: ruq pain Time Seen by Provider: 12/05/23 23:10 Source: patient Mode of arrival: ambulatory Limitations: no limitations History of Present Illness HPI narrative: This is a 33 year old female that presents to the ER for right upper quadrant pain/ chest pain. Ongoing over the last 2 days. Reports the pain is sharp and intermittent in nature. No known injuries. Reports one episode of nausea and vomiting. She was seen at Urgent care and sent to the ER for further evaluation. Denies fever, cough or shortness of breath. Related Data Allergies Allergy/AdvReac Type Severity Reaction Status Date / Time clarithromycin Allergy Mild Unknown Verified 12/05/23 18:24 Penicillins Allergy Mild Difficulty Verified 12/05/23 18:24 Breathing sulfamethoxazole Allergy Mild Unknown Verified 12/05/23 18:24 trimethoprim Allergy Mild Unknown Verified 12/05/23 18:24 Review of Systems Review of Systems: CONSTITUTIONAL: Denies fever CARDIOVASCULAR: Reports chest pain. Denies edema. RESPIRATORY: Denies cough or dyspnea. GASTROINTESTINAL: Reports abdominal pain, nausea, vomiting All systems reviewed & are unremarkable except as noted in HPI and below PMFSH Past Medical History Medical History Cyclic vomiting syndrome Tobacco dependence Surgical History Surgical History History of placement of ear tubes History of tonsillectomy Status post laparotomy With removal of IUD from the omentum. Family History Family History Mother Healthy adult Father Healthy adult Social History Social History Social History: The patient lives in [place] with her dad. She designates her grandmother, Abril, as her surrogate decision maker and she wishes to be a full code. 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 She drinks alcohol rarely and in moderation. She smokes marijuana daily. Occasional recreational prescription drug use including Adderall. Smoking packs per day: 0.5 Smoking cigarettes per day: 10.0 Years smoked: 14 Smoking pack-years: 7.00 Smoking status: Current every day smoker Tobacco type: cigarettes Second hand tobacco smoke exposure: Yes Alcohol intake: current Drinks per week: 1 Substance use: current Substance use type: marijuana Other substance usage details: Marijuana daily Gender identity (if verbalized by the patient): Female Spiritual care concerns: No Agree to blood products: Yes Exam Narrative: GENERAL: Well-appearing, well-nourished, and in no acute distress. HEAD: Normocephalic, atraumatic. EYES: EOMI. CHEST: Clear to auscultation. No respiratory distress. No wheezes rales or rhonchi HEART: Regular rate and rhythm. No murmur heard. Normal peripheral pulses. ABDOMEN: Soft, nondistended, normal active bowel sounds. Tender to palpation in the right upper quadrant without guarding. Tender to palpation of the right lateral chest wall EXTREMITIES: Normal range of motion. No edema. SKIN: Warm, dry, no rash. NEURO: No focal deficits. Alert and oriented x3. PSYCH: Normal mood and affect Course Course Emergency Course: Patient updated on workup and agrees with plan of care. Resting comfortably. Pain relief with toradol Vital Signs Vital signs: Vital Signs Temperature 97.9 F 12/05/23 19:34 Pulse Rate 78 12/05/23 19:34 Respiratory Rate 18 12/05/23 19:34 Blood Pressure 127/85 12/05/23 19:34 Pulse Oximetry 98 12/05/23 19:34 Oxygen Delivery Room Air 12/05/23 19:34 Temperature 97.9 F 12/05/23 22:38 Pulse Rate 69 12/06/23 01:52 Respiratory Rate 16 12/06/23 01:52 Blood Pressure 125/92 H 12/05/23 23:23 Pulse Oximetry 97
[2023-12-05] MEDS: KETOROLAC 15 MG/ML VIAL (*BKC) IV PUSH (23:49)
[2023-12-06 00:13] LABS: Troponin I < 0.012 ng/mL (0.000-0.034)
[2023-12-06 01:52] VITALS: PULSE 69; RESP 16; O2SAT 97
== END 2023-12-06 02:08 | disposition home or self-care (01) ==
PROVIDERS: Emergency Medicine; Emergency Provider Physician Assistant; PCP Emergency Medicine
DX: K80.50 Calculus of bile duct without cholangitis or cholecystitis without obstruction (principal); F17.210 Nicotine dependence, cigarettes, uncomplicated
CPT/HCPCS: 36415; 71046; 71100; 74177; 80053; 81001; 81003; 81025; 83690; 84484; 85025; 85380; 93005; 96374; 99284; J1885; Q9967

== ENCOUNTER 2023-12-31 08:05 | Outpatient (CLI) | payer OTHER, SELFPAY ==
--- NOTE | ~2023-12-31 | US_ITS ---
EXAMINATION: US abdomen limited DATE: 12/31/2023 08:50 INDICATION: Evaluate RUQ abdominal pain TECHNIQUE: Multiple grayscale and Doppler ultrasound images of limited portions of the abdomen were o btained. COMPARISON: CT abdomen pelvis 12/06/2023. FINDINGS: The visualized portions of the pancreas are normal. Well-defined, 5 mm left liver lobe hype rechoic lesion, no halo. The liver is otherwise normal with normal echogenicity and echotexture. No s urface nodularity. Normal hepatopetal flow in the main portal vein. The gallbladder is filled by shad owing stones. Mild gallbladder wall thickening to 3 mm. The common bile duct measures 7 mm, no obstru cting stone or mass detected. There was no sonographic Sin sign. IMPRESSION: Cholelithiasis. Mild gallbladder wall thickening. Dilated common bile duct. Negative sonographic Murp hy sign. Correlate with biliary labs. Consider MRCP and/or HIDA scanning for further evaluation. Likely 5 mm left liver lobe hemangioma, no additional imaging is recommended at this time unless the patient has a history of malignancy or risk factors for liver tumors, in which case consider MRI with out and with contrast for further evaluation. Reviewed, dictated and finalized at location K. R PASTE MIXING SUPERVISOR IMPRESSION: Cholelithiasis. Mild gallbladder wall thickening. Dilated common bile duct. Neg ative sonographic Sin sign. Correlate with biliary labs. Consider MRCP and/o r HIDA scanning for further evaluation. Likely 5 mm left liver lobe hemangioma, no additional imaging is recommended at this time unless the patient has a history of malignancy or risk factors for l iver tumors, in which case consider MRI without and with contrast for further e valuation.
== END 2023-12-31 08:06 | disposition home or self-care (01) ==
PROVIDERS: PCP Emergency Medicine; Visit Provider Surgery
DX: R10.11 Right upper quadrant pain (principal); S22.31XA Fracture of one rib, right side, initial encounter for closed fracture; X58.XXXA Exposure to other specified factors, initial encounter; K80.20 Calculus of gallbladder without cholecystitis without obstruction
CPT/HCPCS: 76705

== ENCOUNTER 2024-02-04 00:26 | Day surgery (SDC) | payer OTHER, SELFPAY ==
[2024-02-01 09:50] VITALS: BMI 25.3
--- NOTE | 2024-02-01 09:55 | PC.NURSE ---
Report to the Outpatient Waiting Room, entrance under the green pavilion located off [facility], at time 0600 on date 02/04/24. Planned Procedure Time: 0730. Time changes happen often and if your time is changed the preop area will call you the afternoon before. - You and your visitor will be asked to self-screen and do not enter if you have any COVID symptoms. - A mask is optional within the hospital at this time. Patients may have clear liquids (water, carbonated beverages, clear teas, apple juice) until 3 hours prior to surgery with a maximum of 20 ounces. - No food from midnight until time of surgery Take the following medications with a SIP of water the morning of surgery: INHALER IF NEEDED DO NOT STOP ANY OF YOUR OTHER PRESCRIPTION MEDICATIONS PRIOR TO SURGERY ?EXCEPT THE FOLLOWING Medications to discontinue per physician: N/A Date to take last dose: N/A Please no make-up, nail chinese, hairspray, perfume, deodorant, or body powder the day of surgery. No jewelry (including any body piercings) or valuables the day of surgery, leave them at home. Please take a shower or bath the night before, or the morning of, surgery with an antibacterial soap. Wear comfortable, loose fitting clothing. - Jewelry must be removed prior to entering the operating room. Rings and piercings that are not removed may be cut off. - The hospital will not accept responsibility for valuables. - Please leave all valuables, including medications, at home the day of surgery. If you are going home after surgery, a licensed bulk truck driver must drive you home. - NO public transportation without another adult if you receive anesthesia. - We recommend that an adult stay with you for 24 hours following discharge. - We also recommend that you do not drive, make important decision, drink alcoholic beverages, or take any drugs that were not prescribed by your health care provider for at least 24 hours after your discharge time. Follow any additional instructions given to you from your surgeon. If you or anyone in your household have experienced Covid symptoms in the past week, please notify your surgeon or the nurse liaison at the phone number below for possible testing. Telephone instructions given to PT - TORREY LOGAN and asked if any additional questions and then verbalized understanding. Patient advised to call surgeon office or pre surgery nurse liaison [phone] if any additional questions.
[2024-02-04] VITALS (11 sets, daily range): BP systolic 104–135; BP diastolic 59–89; PULSE 62–94; RESP 9–18; TEMP 36.2–37.1; O2SAT 95–100
--- NOTE | ~2024-02-04 | XR_ITS ---
EXAMINATION: XR cholangiogram surg 1st inj DATE: 02/04/2024 09:44 INDICATION: Intraoperative evaluation during laparoscopic cholecystectomy TECHNIQUE: Multiple fluoroscopic images of the right upper quadrant were obtained during intraoperati ve cholangiography. A total of 278 fluoroscopic images were obtained. The amount of fluoroscopy time used during this procedure was 0.7 minutes. Total DAP was 0.398 mGym^2 COMPARISON: None. FINDINGS: Cannulation of the cystic duct demonstrates filling of a normal appearing common bile duct which tapers smoothly distally with no intraluminal filling defects or stricture. Contrast extends i nto the duodenum and central intrahepatic biliary tree which also appears normal. IMPRESSION: 1. No filling defects or strictures within the common bile duct or contrast opacified central biliary tree. Reviewed, dictated and finalized at location B. IMPRESSION: 1. No filling defects or strictures within the common bile duct or contrast opa cified central biliary tree.
[2024-02-04] MEDS: LACTATED RINGERS 1,000 ML 30 ML IV CONT ×2 (06:30→10:20)
[2024-02-04] MEDS: KETOROLAC 15 MG/ML VIAL (*BKC) IV PUSH (06:55)
[2024-02-04] MEDS: ACETAMINOPHEN 500 MG TABLET 1000 MG PO (06:55)
[2024-02-04 07:04] LABS: Amylase 77 U/L (30-110)
--- NOTE | 2024-02-04 07:15 | WPDANESEPPF ---
Anes - Initial Pre Proc Eval Procedure: Operation Date: 02/04/24 07:30 Proposed Procedures p Laparoscopic Cholecystectomy with Intraoperative Cholangiogram - Parish Olivera MD Date/Time: 02/04/24 07:15 Surgeon: Parish Olivera MD Pre Op Diagnosis: Symptomatic Cholelithiasis Patient Data Age: 33 Gender: F Height: 1.68 m Weight: 68 kg Last Vital Signs Temp 98.7 F 02/04/24 06:53 Pulse 71 02/04/24 06:53 Resp 18 02/04/24 06:53 BP 119/89 02/04/24 06:53 Pulse Ox 100 02/04/24 06:53 O2 Del Method Room Air 02/04/24 06:53 Allergies Allergy/AdvReac Type Severity Reaction Status Date / Time clarithromycin Allergy Mild Itching Verified 02/04/24 06:52 Penicillins Allergy Mild Difficulty Verified 02/04/24 06:52 Breathing sulfamethoxazole Allergy Mild Itching Verified 02/04/24 06:52 trimethoprim Allergy Mild Itching Verified 02/04/24 06:52 Home Medications Medication Instructions Recorded Confirmed Type albuterol sulfate 90 mcg/actuation 2 puff inhalation .Q4 hours PRN 03/06/21 02/04/24 Rx aerosol inhaler (Ventolin HFA) cough #18 grams Laboratory Tests 02/04/24 06:29 Amylase 77 U/L (30-110) Patient hx anesthesia problems: none Family hx anesthesia problems: none Results Review: All pre-operative results and documents have been reviewed as part of the pre-operative evaluation. [facility] Past Medical History Medical History Cyclic vomiting syndrome Tobacco dependence Surgical History Surgical History History of placement of ear tubes History of tonsillectomy Status post laparotomy With removal of IUD from the omentum. Family History Family History Mother Healthy adult Father Healthy adult Social History Social History Social History: The patient lives in [place] with her dad. She designates her grandmother, Abril, as her surrogate decision maker and she wishes to be a full code. 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 She drinks alcohol rarely and in moderation. She smokes marijuana daily. Occasional recreational prescription drug use including Adderall. Smoking packs per day: 0.5 Smoking cigarettes per day: 10.0 Years smoked: 15 Smoking pack-years: 7.50 Smoking status: Current every day smoker Tobacco type: cigarettes Second hand tobacco smoke exposure: Yes Alcohol intake: current Drinks per week: 10 Alcohol use details: 2 DAYS/WEEK Substance use: current Substance use type: marijuana Other substance usage details: Marijuana daily Living arrangements: with roommate(s) Gender identity (if verbalized by the patient): Female Spiritual care concerns: No Agree to blood products: Yes Anes - Eval Final PreProcedure Day of Procedure 02/04/24 07:15 Patient weight: normal Heart: regular rate and rhythm Lungs: clear to auscultation Airway: Mallampati scale class II (upper chip front tooth) Neurological: alert and oriented Last oral intake: >/= 8 hours ASA classification: II Emergent: no Anesthetic plan: proceed Anesthesia type and monitoring: general ETT and standard monitoring Results Review: All pre-operative results and documents have been reviewed as part of the pre-operative evaluation. Informed Consent: The patient's anesthetic plan and its attendant risks and benefits were discussed with the patient/family/POA. Questions were solicited and answers provided to the satisfaction of the patient/family/POA.
--- NOTE | 2024-02-04 07:34 | WPDHPUPDATE1 ---
History and Physical Update Update Date/Time: 02/04/24 07:34 History and Physical has been reviewed, including an updated exam of the patient. There are NO changes in the patient's condition. Risks, benefits, and alternatives have been discussed and questions answered. Patient agrees to proceed with procedure.
[2024-02-04] MEDS: ceFAZolin 2 GM/D5W 50 ML 2 GM/50 ML BAG IVPB (07:40)
[2024-02-04] MEDS: LIDO 1%/EPINEPHRINE 1:100,000 20 ML VIAL INFILTRATE (08:15)
[2024-02-04] MEDS: BUPivacaine HCL 0.5% 10 ML AMP 20 ML INFILTRATE (08:16)
[2024-02-04] MEDS: CELLULOSE OXIDIZED 4 x 8 INCH 1 PKT XX (08:33)
[2024-02-04] MEDS: fentaNYL CITRATE INJ (*CRX) 100 MCG/2 ML VIAL 25 MCG IV PUSH ×8 (10:34→11:04)
[2024-02-04] MEDS: HYDROmorphone HCL INJ (*CRX) 1 MG/ML SYR 0.5 MG IV PUSH ×4 (11:13→11:42)
[2024-02-04] MEDS: oxyCODONE HCL (*CRX) 5 MG TAB IR PO (12:10)
--- NOTE | 2024-02-07 17:27 | W.PM.PROC2 ---
Procedure Note - Detailed Date of Procedure 02/04/24 Pre-op Diagnosis Symptomatic Cholelithiasis Post-op Diagnosis Other ( Chronic cholecystitis secondary to gallstones, iatrogenic left liver laceration.) Procedure Performed Laparoscopic cholecystectomy with intraoperative cholangiogram Surgeon Parish Olivera MD Anesthesia General Indications patient is a 33-year-old female who presented with complaints of having right upper quadrant abdominal pain associated with eating. Gallstones were noted on imaging. Her preoperative imaging also suggested mild dilation of common bile duct at 7mm she had some mildly elevated liver enzymes. She was scheduled to have a MRCP performed however since she is going to the operating room anyway for laparoscopic cholecystectomy we decided to forego the MRCP and just proceed with a laparoscopic cholecystectomy with intraoperative cholangiogram. Findings The gallbladder was filled with many gallstones. Gallbladder wall is chronically thickened incisions or chronic inflammation. Intraop cholangiogram was performed showing no evidence of a retained common bile duct stone. There was prompt drainage of dye into the duodenum. Upon entry into the abdomen with a Optiview port left upper quadrant there was a 1.5cm laceration of the anterior surface of the left lobe of the liver which extended about 0.5cm into the parenchyma of the liver. I was able to achieve stasis on this laceration after holding pressure on the area and then applying electrocautery to the raw all liver parenchyma and then apply application of topical hemostatic agents to include Surgicel and Tisseal. The large piece of Surgicel was removed at the end the procedure from the abdomen. Description of Procedure After informed consent was obtained patient brought to the operating room she was placed supine position and general endotracheal anesthesia was administered. The abdomen was then prepped and draped usual sterile fashion. A time-out was then performed correctly identifying the patient as well as procedure to be performed. She was given perioperative IV antibiotics. I 1st started by placing a 5mm Optiview view port in the left upper quadrant with a direct optical insertion. Once I had the port inside the abdomen insufflated I immediately saw some blood in the left upper quadrant. Once I had the abdomen fully insufflated to adequate pneumoperitoneum of 15mmHg of CO2 I then placed a periumbilical 5mm trocar port. Switching laparoscopic to the periumbilical position I then lifted the left lobe of the liver and identified a 1.5 x 0.5x0.5cm iatrogenic laceration in the surface of the left lobe of the liver. Hemostasis on this laceration was then achieved utilizing application of topical hemostatic agents to include Surgicel followed by electrocautery of the liver parenchyma which pretty much achieved hemostasis. I then lastly placed 10cc of Tisseal topical hemostatic agent as well. This achieved hemostasis well on the iatrogenic laceration of the liver. I then proceeded to aspirate the blood from the left upper quadrant the abdomen. I then placed additional trocar ports to include a 10mm epigastric trocar port and 2 right lateral subcostal 5mm trocar ports all under direct visualization. The gallbladder was distended and involved within a layer of adipose tissue. This was not the omentum. The gallbladder wall is mildly thickened and the gallbladder was filled with gallstones. Was able to hold the gallbladder at the dome with a laparoscopic grasper and elevated the gallbladder with the right hand 3rd was right shoulder. A 2nd grasper used to hold the gallbladder infundibulum and then I proceeded to strip down the adipose tissue around the infundibular gallbladder and then the visceral peritoneum until I identified what appeared to be the cystic duct. The cystic duct was then dissected out circumferentially. Posterior medial to the cystic duct was t
== END 2024-02-04 13:16 | disposition home or self-care (01) ==
PROVIDERS: PCP Emergency Medicine; Visit Provider Surgery
PROC: 0FT44ZZ Resection of Gallbladder, Percutaneous Endoscopic Approach (ICD-10-PCS; CPT 47562; principal; 2024-02-04 07:30)
DX: K80.10 Calculus of gallbladder with chronic cholecystitis without obstruction (principal); K91.71 Accidental puncture and laceration of a digestive system organ or structure during a digestive system procedure; R11.15 Cyclical vomiting syndrome unrelated to migraine; F17.210 Nicotine dependence, cigarettes, uncomplicated; F12.90 Cannabis use, unspecified, uncomplicated; Z98.890 Other specified postprocedural states; Z79.51 Long term (current) use of inhaled steroids
CPT/HCPCS: 47563; 47379; 36415; 74300; 82150; 88304; A9270; J0690; J1170; J1885; J2250; J3010; J7120; Q9966

== ENCOUNTER 2025-09-16 09:07 | Emergency (ER) | payer OTHER, SELFPAY ==
--- NOTE | ~2025-09-16 | XR_ITS ---
EXAMINATION: XR chest 2V 09/16/2025 10:41 INDICATION: Right lower chest pain PROCEDURE: 2 view chest COMPARISON: 12/06/2023 FINDINGS: The lungs are clear. The cardiomediastinal silhouette is within normal limits. There are no pleural effusions. There is no pneumothorax suspected. IMPRESSION: 1: NO ACUTE CARDIOPULMONARY DISEASE. Reviewed, dictated and finalized at location O.
--- NOTE | ~2025-09-16 | XR_ITS ---
XR abdomen/kub 1V 09/16/2025 10:41 INDICATION: Right-sided abdomen pain TECHNIQUE: KUB COMPARISON: None FINDINGS: Bowel gas pattern is normal. There is no evidence of free air, mass, organomegaly, ascites or obstruction. No abnormal calculi are seen. The bones appear intact. Moderate colonic fecal loading. There are cholecystectomy clips. IMPRESSION: 1: No acute abdominal abnormality identified. Reviewed, dictated and finalized at location O.
[2025-09-16 09:20] VITALS: BP 150/77; PULSE 66; RESP 18; TEMP 36.6; O2SAT 94
--- NOTE | 2025-09-16 10:21 | ED.ABDPAIN ---
HPI - Abdominal Pain General Chief Complaint: Abdominal Pain Stated Complaint: SOB/Right Side Flank Pain Time Seen by Provider: 09/16/25 10:21 Source: patient and RN notes reviewed Mode of arrival: ambulatory Limitations: no limitations History of Present Illness HPI narrative: 39-year-old female patient presents to the [facility] complaining of right upper quadrant/right lower chest wall pain. Patient also reports a dry cough. She said it started approximately 3 days ago. Patient denies any falls or injuries. Patient states she does smoke cigarettes and marijuana. Patient says the pain is worse when she takes a deep breath, she feels short of breath because of the pain. Patient denies any difficulty breathing. Patient has a history of a cholecystectomy about a year ago. Patient denies any nausea vomiting, diarrhea, chest pain, fevers, any other upper respiratory symptoms, black tarry stools, urinary symptoms, or blood in her urine. Patient is not trying to help with symptoms. Related Data Home Medications ?Medication ?Instructions ?Recorded ?Confirmed ?Last Taken ?Type No Home Medications 09/16/25 09/16/25 Unknown History Allergies Allergy/AdvReac Type Severity Reaction Status Date / Time clarithromycin Allergy Mild Itching Verified 09/16/25 10:03 Penicillins Allergy Mild Difficulty Verified 09/16/25 10:03 Breathing sulfamethoxazole Allergy Mild Itching Verified 09/16/25 10:03 trimethoprim Allergy Mild Itching Verified 09/16/25 10:03 Review of Systems Review of Systems: CONSTITUTIONAL: Denies fever, chills, or sweats. EYES: Denies visual changes, redness, or discharge. ENT: Denies rhinorrhea, congestion, sore throat, or otalgia. CARDIOVASCULAR: Positive for chest wall pain. Negative for chest pain, chest pain with exertion, dizziness, lightheadedness Palpitations, or edema. RESPIRATORY: Denies cough or dyspnea. GASTROINTESTINAL: Positive right upper quadrant pain. Negative for blocked artery stools, vomiting blood, nausea, vomiting, or diarrhea. GENITOURINARY: Denies dysuria or hematuria. SKIN: Denies rash or itching. MUSCULOSKELETAL: Denies back pain, joint pain, or myalgia. NEUROLOGIC: Denies headache, numbness, or weakness. PSYCHIATRIC: Denies anxiety or depression. All other systems reviewed are negative, except as documented in HPI. [facility] Past Medical History Medical History Tobacco dependence Cyclic vomiting syndrome Surgical History Surgical History History of laparoscopic cholecystectomy Laparoscopic cholecystectomy with intraoperative cholangiogram 02/04/24 History of placement of ear tubes Status post laparotomy With removal of IUD from the omentum. History of tonsillectomy Family History Family History Mother Healthy adult Father Healthy adult Social History Social History Social History: The patient lives in [place] with her dad. She designates her grandmother, Abril, as her surrogate decision maker and she wishes to be a full code. 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 She drinks alcohol rarely and in moderation. She smokes marijuana daily. Occasional recreational prescription drug use including Adderall. Smoking packs per day: 0.5 Smoking cigarettes per day: 10.0 Years smoked: 15 Smoking pack-years: 7.50 Smoking status: Current every day smoker Tobacco type: cigarettes Second hand tobacco smoke exposure: Yes Alcohol intake: current Drinks per week: 10 Alcohol use details: 2 DAYS/WEEK Substance use: current Substance use type: marijuana Other substance usage details: Marijuana daily Living arrangements: with roommate(s) Gender identity (if verbalized by the patient): Female Spiritual care concerns: No Agree to blood products: Yes Comments At the time of my signature, I reviewed and agree with the nursing past medical, surgical, social, and family history. There is no relevant family history pertinent to the patient complaint. Exam Narrative: GENERAL: This is a well-nourished, well-developed adult, in no apparent distress. They are non ill-appearing, nontoxic appearing. HEAD: normocephalic, atraumatic. EYES: Sclera clear/white. Conjunctiva normal. Vision is grossly intact. Extraocular movements intact EARS: External ears normal, auditory canals clear and without drainage, TMs normal without perforation. Hearing grossly intact. NOSE: External nose normal with no obvious nasal discharge, nasal turbinates erythematous, no rhinorrhea. THROAT: Mucous membranes moist, posterior pharynx without redness or swelling. Uvula midline. Postnasal drip present. NECK: Neck supple, non-tender without lymphadenopathy, masses or thyromegaly. CARDIOVASCULAR: Regular rate and rhythm without murmurs, gallops, or rubs. RESPIRATORY: Clear auscultation. Breath sounds equal bilaterally. No wheezes, rales, or rhonchi. CHEST WALL: No tenderness to palpation. No paradoxical movements. No obvious deformity, bruising, redness, swelling. GASTROINTESTINAL: Abdomen soft, non-tender, nondistended. Bowel sounds are active. No hepato-splenomegaly, or palpable masses. No guarding or rigidity. No rebound tenderness. SKIN: warm, Dry, intact with no suspicious lesions or rash, good texture and turgor. NEURO: awake, alert, and oriented to person, place and time. There were no obvious focal neurologic abnormalities. EXTREMITIES: No joint tenderness, effusion, or edema noted. BACK: Nontender without deformity. No CVA tenderness. Course Course Emergency Course: Portions of this record may have been created with voice recognition software Level of Care: Express Care Visit Vital Signs Vital signs: Vital Signs Temperature 97.8 F 09/16/25 09:20 Pulse Rate 66 09/16/25 09:20 Respiratory Rate 18 09/16/25 09:20 Blood Pressure 150/77 H 09/16/25 09:20 Pulse Oximetry 94 09/16/25 09:20 Oxygen Delivery Room Air 09/16/25 09:20 Temperature 97.8 F 09/16/25 09:20 Pulse Rate 66 09/16/25 09:20 Respiratory Rate 18 09/16/25 09:20 Blood Pressure 150/77 H 09/16/25 09:20 Pulse Oximetry 94 09/16/25 09:20 Oxygen Delivery Room Air 09/16/25 09:20 Reviewed MDM - Abdominal Pain MDM Narrative Medical decision making narrative: Will get chest x-ray and KUB to assess for patient's symptoms. No obvious evidence of infection, patient nontoxic appearing, no apparent distress. Vital signs hemodynamically stable. No tachycardia. Pain is worse with inspiration. Symptoms do not appear to be cardiac in nature. EKG was sinus rhythm without ischemic findings. It is borderline, incomplete right bundle branch block noted. [place] heart score 0. Low suspicion for ACS. Perc score 0. Low suspicion for PE. Patient has had her gallbladder removed. No abdominal tenderness, no peritoneal findings. Patient denies any any ETOH use. Patient does report she smokes cigarettes and marijuana. Chest x-ray negative for any acute cardiopulmonary findings. X-ray KUB without any acute findings, it does reveal moderate stool in patient's colon appears to be constipated. There is also stool backed up in near the patient's right upper quadrant near her right lower ribcage which could explain her symptoms. Offered patient ER transfer given her symptoms for further evaluation management and to potentially have included but not limited lab work and advanced imaging, and patient declined. Patient would like to try treatment for constipation prior to going to the ER. Discussed the use of MiraLax and Colace recommend hydration with plenty of fluids, increase fiber. Strict ER precautions that discussed with patient especially if her pain gets worse, nausea, vomiting, fevers, chest pains, difficulty breathing, or any serious concerns. Differential Diagnosis Differential diagnosis: Likely abdominal pain, calculus of kidney and other (Pleurisy, pneumonia, pneumothorax, constipation, gastroenteritis, viral illness, biliary obstruction) Imaging Data Radiologist's impression: ITS Impressions Abdomen X-Ray 09/16/25 10:46 IMPRESSION: 1: No acute abdominal abnormality identified. Chest X-Ray 09/16/25 10:48 IMPRESSION: 1: NO ACUTE CARDIOPULMONARY DISEASE. ECG Data EKG #1: ECG completion date: 09/16/25 ECG completion time: 11:11 Prior ECG tracings: not available for review Interpretation: Borderline, incomplete right bundle-branch block. normal rate, sinus rhythm, no ST changes, normal QRS, RBBB (Incomplete), normal QT and NL axis Critical Care Time Critical Care Time Critical Care Time: No Discharge Plan Discharge Clinical Impression: Constipation Patient Disposition: Home Condition: Stable Instructions: Constipation (ED) Additional Instructions: Your chest x-ray is negative for any acute cardiopulmonary findings. Your EKG is a sinus rhythm. The x-ray KUB of your abdomen reveals moderate constipation this could be the symptoms you are having. Please take MiraLax as directed, follow the instructions on the bottle. Take Colace as directed. Follow Instructions on the bottle. Drink plenty of fluids. Increase your activity level. Consume plenty of fiber in her diet. Follow-up with PCP in 3-5 days. If your symptoms are not improving, he developed worsening pain, chest pain, difficulty breathing, nausea, vomiting, black tarry stools, vomiting blood, fevers, urinary symptoms, or any serious concerns please go to the ER immediately. Patient Language: Polish Prescriptions: No Action No Home Medications Follow-up/Referrals: Chilango Gupta MD [Primary Care Provider, [facility]] Time of Disposition: 11:23
--- NOTE | 2025-09-16 10:47 | ECG_ITS ---
Test Date: 2025-09-16 11:11:00 Measurements Intervals [place] Rate: 62 P: -13 WY: 135 QRS: 37 QRSD: 93 T: 50 QT: 428 QTc: 436 Interpretive Statements SINUS RHYTHM INCOMPLETE RIGHT BUNDLE BRANCH BLOCK BORDERLINE ECG No previous ECG available for comparison Electronically Signed On 09-16-2025 11:12:27 CDT by Lobo Alvarez D.O.
== END 2025-09-16 11:33 | disposition home or self-care (01) ==
PROVIDERS: PCP Emergency Medicine
DX: K59.00 Constipation, unspecified (principal); F17.210 Nicotine dependence, cigarettes, uncomplicated; F12.90 Cannabis use, unspecified, uncomplicated
CPT/HCPCS: 71046; 74018; 93005; 99213; G0463

== ENCOUNTER 2025-09-17 11:48 | Emergency (ER) | payer OTHER, SELFPAY ==
--- NOTE | ~2025-09-17 | CT_ITS ---
Exam: CT chest without contrast Clinical History: [Right anterior rib pain ] Comparison: [ None available] Technique: Multiple axial CT images of the chest without with IV contrast. Sagittal and coronal reformatted images were obtained. FINDINGS: Lungs and pleura: [ Visualized tracheal bronchial tree is patent. No pneumothorax. No pleural effusion. No pulmonary mass. There are a few small reticular and bandlike opacities in the lower lungs likely atelectasis or scarring.] Mediastinum and pulmonary krzysztof: [ No mass or adenopathy.] Axillary/intramammary and supraclavicular: [ No mass or adenopathy.] Heart and great vessels: [ Normal heart size.[ [ No pericardial effusion.] [ No aneurysm.] Chest Wall: [ Unremarkable.] Upper Abdomen: Cholecystomy clips. Osseous structures: [ No acute fracture or destructive lesion.] [ Multilevel degenerative change in the visualized spine.] Additional findings: Breasts are heterogeneously dense and nodular. IMPRESSION: 1. No CT evidence for right-sided rib fracture. 2. There are a few small reticular and bandlike opacities in the lower lungs likely atelectasis or scarring. 3. Breasts are heterogeneously dense and nodular. Consider a mammogram and ultrasound for further assessment. Correlate clinically. Reviewed, dictated and finalized at location Q. IMPRESSION: 1. No CT evidence for right-sided rib fracture. 2. There are a few small reticular and bandlike opacities in the lower lungs li radha atelectasis or scarring. 3. Breasts are heterogeneously dense and nodular. Consider a mammogram and ultr asound for further assessment. Correlate clinically.
[2025-09-17 12:04] VITALS: BP 117/97; PULSE 73; RESP 17; TEMP 36.6; O2SAT 97
[2025-09-17 12:09] VITALS: RESP 15; O2SAT 97
--- NOTE | 2025-09-17 12:39 | ECG_ITS ---
Test Date: 2025-09-17 12:46:55 Measurements Intervals [place] Rate: 65 P: 61 DE: 151 QRS: 16 QRSD: 88 T: 55 QT: 405 QTc: 424 Interpretive Statements SINUS RHYTHM NORMAL ECG COMPARED WITH PRIOR ECG 09-16-25 11:11 INCOMPLETE RIGHT BUNDLE BRANCH BLOCK NO LONGER PRESENT Electronically Signed On 09-17-2025 12:47:52 CDT by oLbo Alvarez D.O.
[2025-09-17 12:51] VITALS: BP 137/86; PULSE 64; RESP 16; O2SAT 99
[2025-09-17] MEDS: KETOROLAC 15 MG/ML VIAL (*BKC) IV PUSH (12:54)
[2025-09-17 12:56] LABS: BEDSIDEPREGUCG Negative (Negative)
[2025-09-17 12:58] LABS: Hematocrit 41.6 % (37.0-47.0); Hemoglobin 13.7 g/dL (12.0-15.0); Immature Granulocyte Percent A 0.2 % (0-0.5); Lymphocytes Absolute Auto 1.84 K/mm3 (0.9-3.2); Mean Corpuscular HGB Conc 32.9 g/dl (32-36); Mean Corpuscular Hemoglobin 30.5 pg (26-34); Mean Corpuscular Volume 92.7 fl (80-100); Nucleated Red Blood Cells Absolute Auto 0.000 K/mm3 (0.0-0.012); Nucleated Red Blood Cells Perc 0.0 % (0.0-0.2); Platelet Count Result 251 k/mm3 (150-375); Red Blood Count 4.49 M/mm3 (4.2-5.4); White Blood Count 5.3 K/mm3 (4.5-10.0)
[2025-09-17 13:05] LABS: Add Urine Microscopic? YES; Appearance Urine Clear (Clear); Glucose Urine UA Negative (Negative); Leukocyte Esterase Ur Negative LEU/UL (Negative); Nitrate Urine Negative (Negative); Non Pathogenic Casts 0-2; Specific Grav Ur 1.009 (1.001-1.035)
[2025-09-17 13:09] LABS: Alanine Aminotransferase 13 U/L (6-35); Albumin Level 4.0 g/dL (3.5-5.1); Alkaline Phosphatase 61 U/L (38-126); Anion Gap 3 mmol/L (4-12); Aspartate Amino Transferase 17 U/L (14-36); Bilirubin,Total 0.6 mg/dL (0.2-1.3); Blood Urea Nitrogen 3 mg/dL (7-17); Calcium 8.7 mg/dL (8.4-10.2); Carbon Dioxide 26 mmol/L (22-30); Chloride 108 mmol/L (98-107); Estimated CRCL calculation 93 ml/min; Estimated Glomerular Filt Rate > 60; Glucose 97 mg/dL (65-110); Potassium 4.1 mmol/L (3.4-5.0); Sodium 137 mmol/L (137-145); Total Protein 6.7 g/dL (6.3-8.2)
[2025-09-17 13:21] LABS: NT Pro B Type Natriuretic Pept 116 pg/mL (19.9-100); Troponin I < 0.012 ng/mL (0.000-0.034)
[2025-09-17 13:28] LABS: Cannabinoid Screen Urine Positive (Negative)
[2025-09-17 13:38] LABS: Influenza A QL RT-PCR Negative (Negative); Influenza B QL RT-PCR Negative (Negative); RSV RNA, RT-PCR Negative (Negative); SARS-CoV-2 RNA PCR Negative (Negative)
--- NOTE | 2025-09-17 13:43 | ED_ITS ---
HPI - General Adult General Chief complaint: Unspecified Stated complaint: constipation, rib pain, sob Time Seen by Provider: 09/17/25 12:11 History of Present Illness HPI narrative: This is a 35-year-old female with history of substance use disorder presenting for right-sided chest pain. Patient has sharp pain in the right side of ribcage. It is worse with deep breaths. Is worse with palpation over the ribcage. She does not remember any trauma. She does not have any recent surgeries, cancer or lower extremity edema/history of DVT/PE. She was seen in urgent care 2 days ago and was discharged with a diagnosis of possible constipation. Patient denies fevers chills productive cough. Denies use drugs or alcohol. Related Data Allergies Allergy/AdvReac Type Severity Reaction Status Date / Time clarithromycin Allergy Mild Itching Verified 09/17/25 12:04 Penicillins Allergy Mild Difficulty Verified 09/17/25 12:04 Breathing sulfamethoxazole Allergy Mild Itching Verified 09/17/25 12:04 trimethoprim Allergy Mild Itching Verified 09/17/25 12:04 PMFSH Past Medical History Medical History Tobacco dependence Cyclic vomiting syndrome Surgical History Surgical History History of laparoscopic cholecystectomy Laparoscopic cholecystectomy with intraoperative cholangiogram 02/04/24 History of placement of ear tubes Status post laparotomy With removal of IUD from the omentum. History of tonsillectomy Family History Family History Mother Healthy adult Father Healthy adult Social History Social History Social History: The patient lives in [place] with her dad. She designates her grandmother, Abril, as her surrogate decision maker and she wishes to be a full code. 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 She drinks alcohol rarely and in moderation. She smokes marijuana daily. Occasional recreational prescription drug use including Adderall. Smoking packs per day: 0.5 Smoking cigarettes per day: 10.0 Years smoked: 15 Smoking pack-years: 7.50 Smoking status: Current every day smoker Tobacco type: cigarettes Second hand tobacco smoke exposure: Yes Alcohol intake: current Drinks per week: 10 Alcohol use details: 2 DAYS/WEEK Substance use: current Substance use type: marijuana Other substance usage details: Marijuana daily Living arrangements: with roommate(s) Gender identity (if verbalized by the patient): Female Spiritual care concerns: No Agree to blood products: Yes Exam 2 Narrative: APPEARANCE: No apparent distress. Head: atraumatic. EYES: EOMI, NOSE: Atraumatic NECK: Trachea midline RESPIRATORY: No increased rate of breathing clear to auscultation CARDIOVASCULAR: RRR, reproducible chest wall pain over the right anterior ribcage ABDOMINAL: Non-distended soft nontender, no CVA tenderness MUSCULOSKELETAl: No obvious deformities NEURO: Alert. Moving 4/4 extremities SKIN:: Warm, dry. Normal color PSYCHIATRIC: Normal affect Course Vital Signs Vital signs: Vital Signs Temperature 97.9 F 09/17/25 12:04 Pulse Rate 73 09/17/25 12:04 Respiratory Rate 17 09/17/25 12:04 Blood Pressure 117/97 H 09/17/25 12:04 Pulse Oximetry 97 09/17/25 12:04 Oxygen Delivery Room Air 09/17/25 12:04 Temperature 97.9 F 09/17/25 12:04 Pulse Rate 64 09/17/25 12:51 Respiratory Rate 16 09/17/25 12:51 Blood Pressure 137/86 09/17/25 12:51 Pulse Oximetry 99 09/17/25 12:51 Oxygen Delivery Room Air 09/17/25 12:04 Medical Decision Making [facility] Narrative Medical decision making narrative: -Course: 35-year-old female presenting with right-sided pleuritic pain. She has reproducible chest wall tenderness. Lungs are clear. Vital signs are stable. Patient is technically PERC negative, however given that this is a bounce-back will obtain a D-dimer she is low risk for PE. D-dimer was undetectable. Troponins were undetectable x2. BMP was normal. All laboratory studies within normal limits. Chest x-ray did not show any acute findings. CT of the chest without contrast not show any acute findings. Patient treated with Toradol and her pain improved. Suspect pain is due to rib contusion or pleurisy. Patient be discharged on NSAIDs. UDS was positive for cocaine. -DDX includes but is not limited to: Costochondritis chest wall pain, pleurisy, PE, pneumonia, ACS, pneumothorax -Co-morbidities complicating care: Cocaine abuse Vital Signs Vital Signs: Vital Signs Temperature 97.9 F 09/17/25 12:04 Pulse Rate 73 09/17/25 12:04 Respiratory Rate 17 09/17/25 12:04 Blood Pressure 117/97 H 09/17/25 12:04 Pulse Oximetry 97 09/17/25 12:04 Oxygen Delivery Room Air 09/17/25 12:04 Temperature 97.9 F 09/17/25 12:04 Pulse Rate 64 09/17/25 12:51 Respiratory Rate 16 09/17/25 12:51 Blood Pressure 137/86 09/17/25 12:51 Pulse Oximetry 99 09/17/25 12:51 Oxygen Delivery Room Air 09/17/25 12:04 Lab Data 09/17/25 12:49 09/17/25 12:49 Labs: Lab Results 09/17/25 09/17/25 09/17/25 Range/Units 12:48 12:49 12:54 WBC 5.3 (4.5-10.0) K/mm3 RBC 4.49 (4.2-5.4) M/mm3 Hgb 13.7 (12.0-15.0) g/dL Hct 41.6 (37.0-47.0) % MCV 92.7 (80-100) fl MCH 30.5 (26-34) pg MCHC 32.9 (32-36) g/dl RDW 13.2 (11.5-14.5) % Plt Count 251 (150-375) k/mm3 MPV 11.7 H (7.4-10.4) fl Immature Gran % (Auto) 0.2 (0-0.5) % Neut % (Auto) 53.7 (45.5-73.1) % Lymph % (Auto) 34.8 (18.3-44.2) % [place] % (Auto) 6.6 (2.6-8.5) % Eos % (Auto) 3.8 (0-4.4) % Baso % (Auto) 0.9 (0.2-1.2) % Lymph # (Auto) 1.84 (0.9-3.2) K/mm3 [place] # (Auto) 0.4 (0.1-0.6) K/mm3 Eos # (Auto) 0.2 (0-0.3) K/mm3 Baso # (Auto) 0.1 (0.0-0.1) K/mm3 Abs Immat Gran (auto) 0.01 (0.00-0.031) K/mm3 Absolute Neuts (auto) 2.8 (1.3-6.7) K/mm3 Absolute Nucleated RBC 0.000 (0.0-0.012) K/mm3 Nucleated RBC % 0.0 (0.0-0.2) % D-Dimer < 0.27 (<0.48) ug/mL Sodium 137 (137-145) mmol/L Potassium 4.1 (3.4-5.0) mmol/L Chloride 108 H (98-107) mmol/L Carbon Dioxide 26 (22-30) mmol/L Anion Gap 3 L (4-12) mmol/L BUN 3 L D (7-17) mg/dL Creatinine 0.79 (0.7-1.0) mg/dL Estim Creat Clear Calc 93 ml/min Estimated GFR > 60 (59 - ) Glucose 97 (65-110) mg/dL Calcium 8.7 (8.4-10.2) mg/dL Total Bilirubin 0.6 (0.2-1.3) mg/dL AST 17 (14-36) U/L ALT 13 (6-35) U/L Alkaline Phosphatase 61 (38-126) U/L Troponin I < 0.012 (0.000-0.034) ng/mL NT-Pro-B Natriuret Pep 116 H (19.9-100) pg/mL Total Protein 6.7 (6.3-8.2) g/dL Albumin 4.0 (3.5-5.1) g/dL Urine Color Yellow (Yellow) Urine Appearance Clear (Clear) Urine pH 7.5 (5.0-9.0) Ur Specific [place] 1.009 (1.001-1.035) Urine Protein Negative (Negative) mg/dL Urine Glucose (UA) Negative (Negative) mg/dL Urine Ketones Negative (Negative) mg/dL Ur Blood (Man) 3+ H (Negative) Urine Nitrate Negative (Negative) Urine Bilirubin Negative (Negative) Urine Urobilinogen 0.2 (<2.0) mg/dL Leukocyte Esterase Rfl Negative (Negative) NAOMIE/UL Urine RBC 0-2 (0-2) /hpf Urine WBC 0-5 (0-3) /hpf Ur Squamous Epith Cells Occasional (Few) /hpf Urine Bacteria None seen /hpf Urine Casts 0-2 POC Urine HCG, Qual Negative (Negative) Urine Opiates Screen Negative (Negative) Urine Methadone Screen Negative (Negative) Ur Barbiturates Screen Negative (Negative) Ur Phencyclidine Scrn Negative (Negative) Ur Amphetamine Screen Negative (Negative) U Benzodiazepines Scrn Negative (Negative) Urine Cocaine Screen Positive A (Negative) U Cannabinoids Screen Positive A (Negative) Ethyl Alcohol < 10 (<10) mg/dL Influenza A (RT-PCR) Negative (Negative) Influenza B (RT-PCR) Negative (Negative) RSV (RT-PCR) Negative (Negative) SARS-CoV-2 RNA (RT-PCR) Negative (Negative) Discharge Plan Discharge Clinical Impression: Polysubstance abuse, Pleurisy Patient Disposition: Home Condition: Stable Instructions: Antibiotic Form, Pleurisy (DC) Additional Instructions: You were seen in the emergency department for chest pain. Thankfully your workup here was reassuring. Please use Motrin Tylenol for pain. Please follow- up with your primary care physician for further management. If you develop any new or worsening symptoms he can return to the ED for re-evaluation. Patient Language: Israeli Prescriptions: New ibuprofen 800 mg tablet 800 mg PO TID PRN (Reason: pain) 7 Days Qty: 21 0RF acetaminophen 500 mg tablet 1,000 mg PO TID PRN (Reason: dylan) 7 Days Qty: 42 0RF Follow-up/Referrals: Chilango Gupta MD [Primary Care Provider, Family Practice] - 1 Week Clinical Impression: Polysubstance abuse; Pleurisy
[2025-09-17 14:46] VITALS: BP 116/72; PULSE 74; RESP 15; O2SAT 99
== END 2025-09-17 14:57 | disposition home or self-care (01) ==
PROVIDERS: Emergency Provider Emergency Medicine; PCP Emergency Medicine
DX: R09.1 Pleurisy (principal); F19.10 Other psychoactive substance abuse, uncomplicated; F17.210 Nicotine dependence, cigarettes, uncomplicated; Z20.822 Contact with and (suspected) exposure to COVID-19
CPT/HCPCS: 36415; 71250; 80053; 80307; 81001; 81025; 82077; 83880; 84484; 85025; 85380; 87637; 93005; 96374; 99284; J1885